=== PATIENT | male | born 1995 | race Caucasian/White ===

== ENCOUNTER 2017-08-14 00:38 | Emergency (ER) | payer OTHER ==
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
[2017-08-14 00:52] VITALS: TEMP 97.3
[2017-08-14] MEDS ORDERED: IBUPROFEN 800 MG TAB PO ONE (00:53)
[2017-08-14 02:36] VITALS: BP 127/74; PULSE 96; RESP 14; O2SAT 98
== END 2017-08-14 02:36 | disposition home or self-care (01) ==
DX: S83.91XA Sprain of unspecified site of right knee, initial encounter (principal); F17.200 Nicotine dependence, unspecified, uncomplicated; W50.0XXA Accidental hit or strike by another person, initial encounter; Y92.89 Other specified places as the place of occurrence of the external cause; Y93.41 Activity, dancing
CPT/HCPCS: L1830